=== PATIENT | male | born 1975 | race Native Hawaiian/Other Pacific Islander ===

== ENCOUNTER 2020-07-15 16:05 | Outpatient (CLI) | payer BC ==
[2020-07-15 17:16] LABS: PLATELET COUNT 362 K/uL (142-355)
[2020-07-15 17:19] LABS: POTASSIUM 4.3 mmol/L (3.6-5.2)
== END 2020-07-15 19:43 | disposition home or self-care (01) ==
LOC: LABW 16:05
PROVIDERS: Nurse Practitioner
DX: K92.1 Melena (principal); R53.83 Other fatigue; K21.0 Gastro-esophageal reflux disease with esophagitis
CPT/HCPCS: 36415; 80053; 82306; 82728; 83540; 84153; 84439; 84443; 85027; 86318

== ENCOUNTER 2020-07-16 22:12 | Outpatient (CLI) | payer BC | END 2020-07-16 22:30 | disposition home or self-care (01) | LOC: LAB 22:12 | DX: K92.1 Melena (principal); R53.83 Other fatigue | CPT/HCPCS: 82272 ==

== ENCOUNTER 2020-09-18 16:29 | Outpatient (CLI) | payer BC ==
[2020-09-18 17:07] LABS: PLATELET COUNT 285 K/uL (142-355)
== END 2020-09-18 19:09 | disposition home or self-care (01) ==
LOC: LABW 16:29
PROVIDERS: Nurse Practitioner
DX: E03.9 Hypothyroidism, unspecified (principal)
CPT/HCPCS: 36415; 84443; 85027